=== PATIENT | male | born 2000 | race African-American/Black ===

== ENCOUNTER 2021-11-19 21:50 | Emergency (ER) | payer SELFPAY ==
[2021-11-20] MEDS ORDERED: Mag-Al Plus 1200 MG/1200 MG/120 MG/30 ML UDCUP ONE (00:03)
== END 2021-11-20 00:24 | disposition home or self-care (01) ==
LOC: CSHERS 21:50
DX: K21.9 Gastro-esophageal reflux disease without esophagitis (principal)
CPT/HCPCS: 93005